=== PATIENT | female | born 1995 | race Two or more races ===

== ENCOUNTER 2024-10-28 21:38 | Emergency (ER) | payer MEDICAID, SELFPAY ==
[2024-10-28 21:39] VITALS: BMI 30.4
[2024-10-28 22:00] VITALS: BP 148/88; PULSE 120; RESP 17; TEMP 37.3; O2SAT 97
--- NOTE | 2024-10-28 22:05 | EKG_ITS ---
[facility] Test Date: 2024-10-28 Pat Name: CLEMENTINA SANCHEZ Department: Room: - Gender: Female [employer] Clerk: : 1995 Requested By: Luis Fernando De Order Number: [id number] Reading MD: Luis Fernando De Measurements Intervals Stuart Rate: 121 P: 34 [place]: 124 QRS: 19 QRSD: 87 T: 31 QT: 292 QTc: 415 Interpretive Statements SINUS TACHYCARDIA POSSIBLE ANTERIOR MYOCARDIAL INFARCTION , OF INDETERMINATE AGE [30 ms Q WAVE IN V3/V4, OR R < 0.2 mV IN V4] No previous ECG available for comparison /store/S0/[id number].pdf
--- NOTE | 2024-10-28 22:07 | XR_ITS ---
Examination: CT brain head without contrast. 2-D sagittal coronal reconstructions Date and time of exam:October 28, 2024 10:51 PM INDICATIONS: Headaches beginning one week ago CTDI: vol (mGy):48 DLP: (mGycm):885 Technique: Multiple CT axial sections of the brain have been obtained, 5 mm slice thickness. Contrast has not been administered. 2-D sagittal, coronal reconstructions have been obtained Low dose protocols were performed. One or more of the following dose reduction techniques were used; automated exposure control, adjustment of the mA and/or KV according to patient size, use of iterative reconstruction technique. Findings: No significant ventricular enlargement. Intra-axial or extra-axial hemorrhage density is not seen. No mass effect or midline shift Basal cisterns are not remarkable. Fourth ventricle is midline. Cranial vault intact. Impression: Negative for acute hemorrhage, mass effect or midline shift Significant chronic ethmoid sinusitis
--- NOTE | 2024-10-28 22:07 | PD.EDRME ---
Rapid Medical Screening Exam RME Arrival date/time: 10/28/24 21:38 29 yo f present to ED for c/o dizziness, headache for 1 week I have greeted and performed a focused initial assessment of this patient. A comprehensive ED assessment and evaluation of the patient, analysis of all test results, and completion of the medical decision making process will be conducted by additional ED providers. Chief Complaint: Headache Time Seen by Provider: 10/28/24 21:41 Vital signs: Vital Signs Temperature 99.1 F 10/28/24 22:00 Pulse Rate 120 H 10/28/24 22:00 Respiratory Rate 17 10/28/24 22:00 Blood Pressure 148/88 H 10/28/24 22:00 Pulse Oximetry (%) 97 10/28/24 22:00 Oxygen Delivery Method Room Air 10/28/24 22:00
[2024-10-28 22:43] LABS: Basophils # (Auto) 0.1 Thou/mm3 (0.0-0.2); Basophils % (Auto) 0 % (0-2.5); Eosinophils % (Auto) 0 % (0-10); Hematocrit 39.2 % (36.0-46.0); Hemoglobin 13.6 g/dL (12.0-16.0); Immature Granulocytes % (Auto) 1 % (0-0); Immature Granulocytes Auto 0.06 Thou/mm3 (0.00-0.00); Lymphocytes # (Auto) 0.8 Thou/mm3 (1.0-4.8); Lymphocytes % (Auto) 7 % (10-50); Mean Corpuscular HGB Conc 34.7 g/dl (31.0-37.0); Mean Corpuscular Hemoglobin 28.8 pg (25.0-35.0); Mean Corpuscular Volume 83 fL (80-100); Monocytes % (Auto) 8 % (0-12); Neutrophils # (Auto) 9.5 Thou/mm3 (1.8-7.7); Neutrophils % (Auto) 84 % (37-80); Nucleated Red Blood Cell % 0 /100 WBC (0); Platelet Count 255 Thou/mm3 (140-440); Red Blood Count 4.72 Miln/mm3 (4.00-5.20); White Blood Count 11.4 Thou/mm3 (3.6-11.0)
[2024-10-28] MEDS: METOCLOPRAMIDE 5 MG TABLET 10 MG PO (22:59)
[2024-10-28 23:03] LABS: HCG,Qualitative Serum Negative
[2024-10-28 23:07] LABS: Alanine Aminotransferase 36 U/L (10-49); Albumin, Serum 4.6 gm/dL (3.5-5.0); Albumin/Globulin Ratio 1.5 (1.2-2.2); Alkaline Phosphatase 67 U/L (46-116); Anion Gap 9 (7-16); Aspartate Amino Transferase 43 U/L (0-34); BUN/Creatinine Ratio 8 Ratio (12-20); Bilirubin,Total 0.5 mg/dL (0.3-1.2); Blood Urea Nitrogen 8 mg/dL (9-23); Calcium 9.8 mg/dL (8.3-10.6); Calcium (Corrected) 9.8 mg/dL (8.5-10.1); Carbon Dioxide 22.7 mMol/L (20.0-31.0); Chloride 99 mMol/L (98-107); Estimated Creatinine Clearance 72.9 mL/min (>60); Globulin 3.1 gm/dL (2.3-3.5); Glucose 351 mg/dL (74-106); Osmolality,Calculated 274 (275-295); Potassium 4.4 mMol/L (3.4-5.1); Sodium 131 mMol/L (136-145); Total Protein 7.7 gm/dL (5.7-8.2); Troponin I < 0.002 ng/mL (0.0-0.045); eGFR > 60 See Note
[2024-10-28] MEDS: HYDROcodone/APAP 5/325 TABLET 1 TAB PO (23:36)
--- NOTE | 2024-10-29 01:31 | PD.EDHA ---
ED Headache RME/HPI General Chief Complaint: Headache Stated Complaint: HEADACHE,NAUSEA Time Seen by Provider: 10/28/24 21:41 Arrival date/time: 10/28/24 21:38 29 year old female present to emergency room with c/o of headache, nausea, dizziness for 1 week. LOCATION: generalized and diffuse headache SEVERITY: Symptoms are described as being severe with limitations on activities of daily living QUALITY: Symptoms are described as being dull or achy CONTEXT: The patient is unable to identify any inciting events. DURATION/TIMING: The symptoms started approximately 7 day ago and have been constant since then and have been progressive getting worse. ASSOCIATED SYMPTOMS: The patient is unable to identify any other associated symptoms. MODIFYING FACTORS: The patient is unable to identify any alleviating or aggravating symptoms. PERTINENT ROS: Headache is gradual in onset, not maximal intensity at onset, not associated with syncope or presyncope, not the first or the worst, not associated with head trauma or anticoagulant use, no associated focal neurological deficits, denies associated neck pain, no recent fevers, no unexplained rashes, no recent foreign travel, immunized, no unexplained or vomiting. REVIEW OF SYSTEMS: See History of Present Illness - with the exception of those mentioned in the history of present illness, all other systems reviewed and reported as negative GENERAL: In general the patient is awake, interactive, in an emergency department gurney. HEAD/EYES/EARS/NOSE/THROAT: normo-cephalic, atraumatic, mucus membranes are moist, anicteric, palpebral conjunctiva is pink, trachea is midline. CARDIOVASCULAR: regular rate and regular rhythm, no murmurs, heart sounds are not distant, strong pulses in all four extremities that are equal and symmetric bilateral upper and lower extremities, normal capillary refill. CHEST/PULMONARY: normal chest rise and fall, good air movement, clear to auscultation bilaterally, normal inspiratory to expiratory ratios without evidence of respiratory distress. NECK: No midline/Paraspinal tenderness, no step off ROM/Strenght intact No Kernig and bruzinski sign. No trauma ABDOMEN: soft, not tender, no masses appreciated BACK: normal range of motion without pain. NEUROLOGICAL: cranio-facial features are symmetric, moves all four extremities equally without obvious limitations or weakness. EXTREMITY: no tenderness to palpation over the long bones or large joints of the bilateral upper and lower extremities, no joint swelling, no joint erythema, no signs of trauma, no unilateral leg swelling and no peripheral edema. SKIN: warm, dry, well-perfused, no jaundice, no rash, no telangiectasias or petechia. PSYCH: calm, cooperative, no evidence of psychosis or agitation RME / HPI RME / HPI Narrative: 10/28/24 21:38 29 yo f present to ED for c/o dizziness, headache for 1 week I have greeted and performed a focused initial assessment of this patient. A comprehensive ED assessment and evaluation of the patient, analysis of all test results, and completion of the medical decision making process will be conducted by additional ED providers. Related Data Home Medications ?Medication ?Instructions ?Recorded ?Confirmed mycophenolate mofetil 250 mg 750 mg PO BID organ transplant #0 04/09/17 12/29/21 capsule (CellCept) caps tacrolimus 1 mg capsule, 1 mg PO CHING organ transplant #0 04/09/17 12/28/21 immediate-release (Prograf) caps tacrolimus 1 mg capsule, 1.5 mg PO HS 12/28/21 12/28/21 immediate-release (Prograf) Allergies Allergy/AdvReac Type Severity Reaction Status Date / Time No Known Allergies Allergy Verified 10/28/24 21:41 Course Course Course Narrative: This? patient presents with symptoms suspicious for likely Covid-19? infection. Differential includes bacterial pneumonia, sinusitis, allergic rhinitis, flu/covid . Do not suspect underlying cardiopulmonary process. I considered, but think unlikely, dangerous causes of this patient?s symptoms to include ACS, CHF or COPD exacerbations, pneumonia, pneumothorax. Patient is nontoxic appearing and not in need of emergent medical intervention. Plan: reassurance, reassessment, over the counter medications, discharge with PCP followup Quality Measures none Orders Category Date Time Status Bedside COVID-19 Antigen Test NOW Care 10/28/24 22:05 Active Bedside Influenza A&B Antigen Test NOW Care 10/28/24 22:06 Completed EKG (ED ONLY) *Do not use* NOW Care 10/28/24 22:[address] head/brain wo con Stat Exams 10/28/24 22:07 Completed EKG (ED Only) Stat Exams 10/28/24 22:05 Draft CBC Stat Lab 10/28/24 22:30 Completed CMP [Comprehensive Metabolic Panel] Stat Lab 10/28/24 22:30 Completed HCG,Qualitative Serum Stat Lab 10/28/24 22:30 Completed Troponin I Stat Lab 10/28/24 22:30 Completed HYDROcodone*/APAP 5/325 [[place] 5/325] Med 10/28/24 23:02 Discontinued 1 tab PO X1 ONE Ketorolac Inj [Toradol Inj] Med 10/28/24 22:05 Discontinued 30 mg IM X1 ONE Metoclopramide [Reglan] Med 10/28/24 22:05 Discontinued 10 mg PO X1 ONE Reevaluation(s) Reevaluation #1: pt is feeling better and like to go home Vital Signs Vital signs: Vital Signs Temperature 99.1 F 10/28/24 22:00 Pulse Rate 120 H 10/28/24 22:00 Respiratory Rate 17 10/28/24 22:00 Blood Pressure 148/88 H 10/28/24 22:00 Pulse Oximetry (%) 97 10/28/24 22:00 Oxygen Delivery Method Room Air 10/28/24 22:00 Headache Patient data External records reviewed:: [facility] previous records Clinical information provided by:: patient Social determinants that could affect healthcare access:: none Patient has the following chronic illnesses:: as stated in chart How is presenting disease/condition affected by chronic disease/condition?: uneffected by Evaluation data The following diagnostics were reviewed and interpreted by me:: lab results and radiology exam(s) Lab and/or radiology exams considered but not ordered:: n/a Interpretation Summary: blood glucose 300 + covid-19 flu negative cbc: wnl ct: No significant ventricular enlargement. Intra-axial or extra-axial hemorrhage density is not seen. No mass effect or midline shift Basal cisterns are not remarkable. Fourth ventricle is midline. Cranial vault intact. Impression: Negative for acute hemorrhage, mass effect or midline shift Significant chronic ethmoid sinusitis Medications / Prescriptions Medications or Prescriptions considered but not ordered:: n/a Medication administrations:: Medication Administration History Discontinued Medications Hydrocodone Bitart/Acetaminophen (Hydrocodone/Apap 5/325 Tablet) 1 tab PO X1 ONE Stop: 10/28/24 23:03 Last Admin: 10/28/24 23:36 Dose: 1 tab Documented By: Ketorolac Tromethamine (Ketorolac Inj 60 Mg/2 Ml Vial) 30 mg IM X1 ONE Stop: 10/28/24 22:06 Last Admin: 10/28/24 23:06 Dose: Not Given Documented By: WILLY Non-Admin Reason: Cancelled by Provider Metoclopramide HCl (Metoclopramide 5 Mg Tablet) 10 mg PO X1 ONE Stop: 10/28/24 22:06 Last Admin: 10/28/24 22:59 Dose: 10 mg Documented By: as stated above Consultations Consultation(s) initiated? (list below): No Diagnosis Differential diagnosis headache: migraine, tension headache, subarachnoid hemorrhage, headache, sinusitis and other (flu/covid ) Most likely diagnosis given after review of the tests above:: covid-19 Admission Indicated Admission indicated?: not indicated Admission Request Was there a request for admission?: No Disposition Plan Disposition Plan: Discharge Discharge Attestation Discharge Attestation: The patient and all family members were given an opportunity to ask questions and understood the discharge instructions. Discharge instructions specifically effects, indications for sooner follow up or return to the emergency department, and the expected course of current diagnosis. Patient condition: Stable Discharge Plan Plan Patient Disposition: HOME (Self Care) Prescriptions/Referrals Prescriptions/Med Rec: No Action mycophenolate mofetil [CellCept] 250 MG capsule 750 mg PO BID Qty: 0 tacrolimus [Prograf] 1 MG capsule 1 mg PO CHING Qty: 0 tacrolimus [Prograf] 1 mg Capsule 1.5 mg PO HS Rx Instructions: Patient takes 1.5mg in the evening. I was unable to locate that dosage when putting this med in. Referrals: Eliza German PA-C [Primary Care Provider] - In 1 week Problem List Clinical Impression: COVID-19 Patient/Caregiver Discharge Instructions Education Materials: COVID-19 Home Care Print Language: Czech Stand Alone Forms: [employer] Award Info., Work/School Release, Patient Portal Info Letter
[2024-10-29 01:40] VITALS: BP 120/85; PULSE 111; RESP 18; TEMP 37.1; O2SAT 97
== END 2024-10-29 01:49 | disposition home or self-care (01) ==
PROVIDERS: Physician Assistant; Emergency Provider Emergency Medicine; PCP Specialist
DX: U07.1 COVID-19 (principal); J32.2 Chronic ethmoidal sinusitis; R00.0 Tachycardia, unspecified
CPT/HCPCS: 36415; 70450; 80053; 84484; 84703; 85025; 87400; 87811; 93005; 99284; A9270

== ENCOUNTER 2024-11-05 15:35 | Emergency (ER) | payer MEDICAID, SELFPAY ==
--- NOTE | 2024-11-05 16:37 | XR_ITS ---
Examination: CT abdomen and pelvis without contrast. Coronal 3-D reconstructions. Sagittal 2-D reconstructions. Date and time of exam:November 05, 2024 1837 hours Comparison April 30, 2020 INDICATIONS: Lower abdominal pain beginning 2 days ago CTDI: vol (mGy): 8.09 DLP: (mGycm): 415 Technique: Axial images of the abdomen have been obtained, 3 mm slice thickness Intravenous contrast material has not been administered. Low dose protocols were performed. One or more of the following dose reduction techniques were used; automated exposure control, adjustment of the mA and/or KV according to patient size, use of iterative reconstruction technique. 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
[2024-11-05 16:40] VITALS: BP 136/97; PULSE 108; RESP 18; TEMP 37.1; O2SAT 99
--- NOTE | 2024-11-05 16:40 | EDNOTE_ITS ---
ED General RME/HPI General Chief complaint: Abdominal Pain Stated complaint: ABD PAIN Time Seen by Provider: 11/05/24 16:36 Arrival date/time: 11/05/24 15:35 CC: Nausea vomiting diarrhea and HPI ongoing for the past 3 to 4 days diagnosed with COVID approximately 1 week ago. Patient denies fever chills shortness of breath last vomiting and diarrhea was approximately 4 hours ago. Patient is persistently tachycardic. Note: Patient has had renal transplant and is managed to keep down her Prograf. Related Data Home Medications ?Medication ?Instructions ?Recorded ?Confirmed mycophenolate mofetil 250 mg 750 mg PO BID organ trans plant #0 04/09/17 12/29/21 capsule (CellCept) caps tacrolimus 1 mg capsule, 1 mg PO CHING organ transplan t #0 04/09/17 12/28/21 immediate-release (Prograf) caps tacrolimus 1 mg capsule, 1.5 mg PO HS 12/28/21 immediate-release (Prograf) Previous Rx's ?Medication ?Instructions ?Recorded ondansetron 4 mg disintegrating 4 mg PO Q8H #10 tabs 0 11/05/24 tablet Allergies Allergy/AdvReac Type Severity Reaction Status Date / Time No Known Allergies Allergy Verified 11/05/24 17:32 Review of Systems Review of Systems Narrative Review of Systems: GEN: No fever, no chills, no weight loss EYES: No discharge, no visual changes, no pain HEENT: No ear pain, no congestion, no sore throat PULM: No shortness of breath, no cough, no congestion CV: No chest pain, no dyspnea on exertion, no palpitations GI: + nausea, + vomiting, + diarrhea, + pain, no constipation : No frequency, no urgency, no dysuria MUSC/SKEL: No joint pain, no back pain SKIN: No rash PSYCH: No hallucinations, no depression HEME/LYMPH: No easy bleeding or bruising tendencies NEURO: No weakness, no headache Past Medical History Past Medical History NEUROLOGIC: Negative Neurological Disorders CARDIAC: Negative Cardiac Disorders or Congestive Heart Failure RESPIRATORY: Negative Chronic Obstructive Pulmonary Disease (COPD) or Asthma GASTROINTESTINAL: Positive Gastrointestinal Disorders and Gastroesophageal Reflux Disease GENITOURINARY: Positive Renal Disease MUSCULOSKELETAL: Negative Musculoskeletal Disorders ENDOCRINE: Positive Diabetes Mellitus Type 1 and Diabetes Mellitus Type 2 HEMATOLOGIC: Negative Sickle Cell Disease OTHER HISTORY: Positive Organ Transplant (right kidney); Negative Blood Transfusions Surgical History SURGICAL: Positive Organ Transplant (right kidney) Social History SMOKING STATUS: Never smoker SUBSTANCE USE: does not use ED Exam Narrative Physical exam: [General: Obese in mild discomfort but not in any acute distress Head normocephalic HEENT: Within acceptable limits Neck is supple nontender Chest equal chest rise nontender to palpation Respiratory: Clear to auscultation no wheezes crackles or rubs CV: Rate rhythm is regular no murmurs rubs or clicks Abdomen is distended secondary to body habitus soft nontender no masses positive bowel sounds all 4 quadrants. Large abdominal surgical scar well-healed Back: No CVA tenderness no spinous process tenderness from cervical spine thoracic and lumbar spine Skin: Intact no petechiae rash induration ulceration or crepitus Extremities: Moving all extremity against resistance cap refill less than 2 seconds neurosensory intact Neuro: Awake alert oriented x3 Glascow coma 15 no focal deficits] Course Course Course Narrative: CT of the abdomen shows the patient has mild hydro to the transplant kidney, and the bladder looks full , nursing reports that the patient urinated approximate an hour before CT was given a liter of fluid patient states she is willing to try urinating again. The patient's renal function is normal, patient has no significant leukocytosis and is not febrile I have a low index of suspicion of UTI. Upon reevaluation at 2031 patient has not spontaneously voided 400 cc. This may be the amount that is seen in the full bladder post CT. Patient is afebrile nontoxic-appearing not in any acute distress with all symptoms resolved we will discharge the patient home with abdominal pain and nausea vomiting. Quality Measures none Orders Category Date Time Status Glucose [Bedside Blood Glucose] NOW Care 11/05/24 20:31 Active Saline [Insert IV] NOW Care 11/05/24 16:[address] abdomen pelvis wo con Stat Exams 11/05/24 16:37 Completed B-Type Natriuretic Peptide Stat Lab 11/05/24 16:53 Completed CBC Stat Lab 11/05/24 16:53 Completed Comprehensive Metabolic Panel Stat Lab 11/05/24 16:53 Completed Drug Screen,Urine Stat Lab 11/05/24 17:46 Completed HCG Qualitative,Urine Stat Lab 11/05/24 17:46 Completed Lipase Stat Lab 11/05/24 16:53 Completed Magnesium Stat Lab 11/05/24 16:53 Completed Partial Thromboplastin Time Stat Lab 11/05/24 16:53 Completed Prothrombin Time with INR Stat Lab 11/05/24 16:53 Completed Urinalysis Stat Lab 11/05/24 17:46 Completed Acetaminophen Ivpb [Ofirmev Inj] Med 11/05/24 16:57 Discontinued 1,000 mg in 100 ml IV NOW Insulin Regular Med 11/05/24 18:51 Discontinued 10 unit SC X1 ONE Ondansetron Inj [Zofran Inj] Med 11/05/24 16:56 Discontinued 4 mg IV X1 ONE Sodium Chloride 0.9% 1000 ml [Ns] 1,000 ml Med 11/05/24 16:36 Discontinued IV 999 mls/hr Vital Signs Vital signs: Vital Signs Temperature 98.7 F 11/05/24 16:40 Pulse Rate 108 H 11/05/24 16:40 Respiratory Rate 18 11/05/24 16:40 Blood Pressure 136/97 H 11/05/24 16:40 Pulse Oximetry (%) 99 11/05/24 16:40 Oxygen Delivery Method Room Air 11/05/24 16:40 Discharge Plan Plan Patient Disposition: HOME (Self Care) Patient condition on transfer: Stable Prescriptions/Referrals Prescriptions/Med Rec: New ondansetron 4 mg tablet,disintegrating 4 mg PO Q8H Qty: 10 0RF No Action mycophenolate mofetil [CellCept] 250 MG capsule 750 mg PO BID Qty: 0 tacrolimus [Prograf] 1 MG capsule 1 mg PO CHING Qty: 0 tacrolimus [Prograf] 1 mg Capsule 1.5 mg PO HS Rx Instructions: Patient takes 1.5mg in the evening. I was unable to locate that dosage when putting this med in. Referrals: Eliza German PA-C [Primary Care Provider] - In 1 week Problem List Clinical Impression: Abdominal pain, Nausea & vomiting Patient/Caregiver Discharge Instructions Education Materials: Abdominal Pain, ED Diabetes with High Blood Sugar, ED Vomiting (Adult) Print Language: Ecuadorean Stand Alone Forms: [employer] Award Info., Patient Portal Info Letter, Work/School Release PA/PASTRY SUPERVISOR Supervising Physician PA/PASTRY SUPERVISOR Supervising Physician: Viktor Ireland ENP [facility] Clinical Information Provided by: patient Medical Records reviewed [facility] Meds/Rx considered, not ordered None Labs/Rad/Tests considered, not ordered None Chronic Illness/Social Conditions Explain: Renal transplant Imaging Imaging Interpretation(s): CBC shows no significant leukocytosis anemia thrombocytopenia Coags within acceptable limits Sodium 132 chloride 95 BUN 28 creatinine 1.3 glucose of 415 no other electrolyte imbalances renal impairment magnesium 1.4 no transaminitis or T. bili elevation BNP is negative. Urine shows 4+ glucose 1+ ketones positive for leukocyte esterase 4 WBCs 3 squamous epithelia rare bacteria UDS is negative. Medication Administration(s) Medication Administration History Discontinued Medications Sodium Chloride (Ns) 1,000 mls @ 999 mls/hr IV .Q1H1M ONE Stop: 11/05/24 17:36 Last Infusion: 11/05/24 18:57 Dose: Infused Documented By: Admin: 11/05/24 17:17 Dose: 999 mls/hr Documented By: BILLY Acetaminophen (Ofirmev Inj) 1,000 mg in 100 mls @ 250 mls/hr IV NOW ONE Stop: 11/05/24 17:20 Last Infusion: 11/05/24 17:45 Dose: Infused Documented By: Admin: 11/05/24 17:18 Dose: 250 mls/hr Documented By: BILLY Insulin Human Regular (Insulin Hum Regular 1 Unit/0.01 Ml (Per Unit)) 10 unit SC X1 ONE Stop: 11/05/24 18:52 Ondansetron HCl (Ondansetron Inj 2 Mg/Ml Inj 2 Ml) 4 mg IV X1 ONE; Protocol Stop: 11/05/24 16:57 Last Admin: 11/05/24 17:17 Dose: 4 mg Documented By: BILLY
[2024-11-05 17:06] LABS: Basophils % (Auto) 0 % (0-2.5); Eosinophils % (Auto) 0 % (0-10); Hematocrit 40.1 % (36.0-46.0); Immature Granulocytes % (Auto) 0 % (0-0); Immature Granulocytes Auto 0.05 Thou/mm3 (0.00-0.00); Lymphocytes # (Auto) 2.9 Thou/mm3 (1.0-4.8); Lymphocytes % (Auto) 25 % (10-50); Mean Corpuscular HGB Conc 34.9 g/dl (31.0-37.0); Mean Corpuscular Hemoglobin 28.7 pg (25.0-35.0); Mean Corpuscular Volume 82 fL (80-100); Monocytes # (Auto) 0.8 Thou/mm3 (0.0-0.8); Monocytes % (Auto) 7 % (0-12); Neutrophils # (Auto) 7.7 Thou/mm3 (1.8-7.7); Neutrophils % (Auto) 67 % (37-80); Nucleated Red Blood Cell % 0 /100 WBC (0); Platelet Count 391 Thou/mm3 (140-440); RDW Standard Deviation 37.7 fL (36.4-46.3); Red Blood Count 4.87 Miln/mm3 (4.00-5.20); White Blood Count 11.4 Thou/mm3 (3.6-11.0)
[2024-11-05 17:16] LABS: Partial Thromboplastin Time 24.9 Seconds (22.0-36.0); Prothrombin Time 10.9 Seconds (9.0-12.2)
[2024-11-05] MEDS: SODIUM CHLORIDE 0.9% 1000 ML 1,000 ML 999 ML IV (17:17)
[2024-11-05] MEDS: ONDANSETRON INJ 2 MG/ML INJ 2 ML 4 MG IV (17:17)
[2024-11-05 17:18] LABS: B-Type Natriuretic Peptide < 20 pg/mL (0-100)
[2024-11-05] MEDS: ACETAMINOPHEN IVPB 1,000 MG/100 ML VIAL 250 MG IV (17:18)
[2024-11-05 17:21] LABS: Alanine Aminotransferase 38 U/L (10-49); Albumin, Serum 4.4 gm/dL (3.5-5.0); Albumin/Globulin Ratio 1.4 (1.2-2.2); Alkaline Phosphatase 77 U/L (46-116); Anion Gap 13 (7-16); Aspartate Amino Transferase 32 U/L (0-34); BUN/Creatinine Ratio 22 Ratio (12-20); Bilirubin,Total 0.5 mg/dL (0.3-1.2); Blood Urea Nitrogen 28 mg/dL (9-23); Calcium 9.4 mg/dL (8.3-10.6); Calcium (Corrected) 9.4 mg/dL (8.5-10.1); Carbon Dioxide 23.7 mMol/L (20.0-31.0); Chloride 95 mMol/L (98-107); Creatinine (Component) 1.3 mg/dL (0.6-1.3); Globulin 3.2 gm/dL (2.3-3.5); Lipase 47 U/L (12-53); Magnesium 1.4 mg/dL (1.6-2.6); Osmolality,Calculated 288 (275-295); Potassium 4.1 mMol/L (3.4-5.1); Sodium 132 mMol/L (136-145); Total Protein 7.6 gm/dL (5.7-8.2); eGFR 57 See Note
[2024-11-05 17:28] VITALS: BMI 28.5
[2024-11-05 17:38] LABS: Glucose 415 mg/dL (74-106)
[2024-11-05 18:10] LABS: Collection Type, Urine Clean Catch
[2024-11-05 18:16] LABS: Bacteria,Urine Rare; Bilirubin,Urine Negative (Negative); Blood,Urine Negative (Negative); Clarity,Urine Clear (Clear/Hazy); Color,Urine Lt-Yellow (Lt Yel-Yel); Glucose, Urine 4+ (Negative); HCG Qualitative,Urine Negative; Hyaline Casts,Urine 1 /hpf (0-1); Ketones,Urine 1+ (Negative); Leukocyte Esterase,Urine Positive (Negative); Nitrite,Urine Negative (Negative); PH,Urine 5.5 (5.0-7.0); Protein,Urine Trace (Neg - Trace); RBC,Urine 4 /hpf (0-3); Squamous Epithelial Cell,Urine 3 /hpf (0-5); Urobilinogen,Urine Negative mg/dL (0.0-1.0); WBC,Urine 4 /hpf (0-5)
[2024-11-05 18:18] VITALS: BP 138/86; PULSE 95; RESP 17; TEMP 37; O2SAT 99
[2024-11-05 18:21] LABS: Amphetamine/Methamp Scrn,U Negative (Negative); Barbiturate Screen,Urine Negative (Negative); Benzodiazepines Screen,Urine Negative (Negative); Benzoylecgonine Screen, Ur Negative (Negative); Fentanyl Screen,Urine Negative (Negative); Opiate Screen,Urine Negative (Negative); THC Screen,Urine Negative (Negative)
--- NOTE | 2024-11-05 19:15 | PC.NURSE ---
Manager Ed assumes care of patient at this time, pt is A/O x 3 with no c/o pain or acute distress aT THIS TIME, bed in low position and locked with side rails up x 2
[2024-11-05 19:40] VITALS: BP 112/80; PULSE 101; RESP 18; TEMP 36.9; O2SAT 99
[2024-11-05] MEDS: INSULIN HUM REGULAR 1 UNIT/0.01 ML (PER UNIT) 5 UNIT SC (20:50)
[2024-11-05 21:11] VITALS: BP 135/90; PULSE 101; RESP 20; TEMP 36.8; O2SAT 99
== END 2024-11-05 21:21 | disposition home or self-care (01) ==
PROVIDERS: Registered Nurse General Practice; Emergency Provider Emergency Medicine; PCP Specialist
DX: R10.9 Unspecified abdominal pain (principal); R11.2 Nausea with vomiting, unspecified; Z94.0 Kidney transplant status; R00.0 Tachycardia, unspecified
CPT/HCPCS: 36415; 74176; 80053; 80307; 81001; 81025; 83690; 83735; 83880; 85025; 85610; 85730; 96361; 96365; 96372; 96375; 99284; J0131; J1815; J2405; J7030